=== PATIENT | male | born 1995 | race Caucasian/White ===

== ENCOUNTER 2016-08-12 17:57 | Emergency (ER) | payer BC, MEDICAID ==
--- NOTE | 2016-08-12 18:47 | UC ---
Neck Pain HPI - HPI Summary HPI Summary: 21 yo male arrived here from [place] yesterday Spent night with friends from [facility] Slept on a cough Awoke with mild headache and neck feeling sore No fever No myalgias (other than neck) no cough no nausea/vomiting/diarrhea Chase that there was a cause of meningitis at [facility] a week ago Called his older sister who is in medical school She suggested he get checked He took ibuprofen and has minimal neck pain and his NAIK disappeared - History of Current Complaint Chief Complaint: UCRespiratory Stated Complaint: STIFF NECK/HEADACHE Time Seen by Provider: 08/12/16 18:27 Hx Obtained From: Patient Onset/Duration Of Injury/Symptoms: Hours Timing: Constant Onset/Duration: Lasting Hours Severity: Mild Pain Intensity: 2 Pain Scale Used: 0-10 Numeric Character: Aching Aggravating Factors: Movement Alleviating Factors: OTC Meds Associated Signs & Symptoms: Positive: Headache - mild which felt like his typical NAIK and disappeared with advil - Risk Factors Meningitis Risk Factors: Negative - Allergies/Home Medications Allergies/Adverse Reactions: Allergies Allergy/AdvReac Type Severity Reaction Status Date / Time No Known Allergies Allergy Verified 08/12/16 18:25 Home Medications: Home Medications Atomoxetine(NF) [Strattera(NF)] 25 mg PO DAILY 08/12/16 [History Confirmed 08/12] FLUoxetine CAP* [PROzac CAP*] 40 mg PO DAILY 08/12/16 [History Confirmed ] Levothyroxine TAB* [Synthroid TAB*] 25 mcg PO 0800 08/12/16 [History Confirmed 08/12/16] PMH/Surg Hx/FS Hx/Imm Hx Previously Healthy: Yes Endocrine History Of: Reports: Thyroid Disease - Surgical History Surgical History: None - Family History Known Family History: Positive: Hypertension - Social History Alcohol Use: Weekly Substance Use Type: Marijuana Smoking Status (MU): Never Smoked Tobacco - Immunization History Most Recent Tetanus Shot: unknown Review Of Systems Constitutional: Positive: Negative Skin: Positive: Negative Eyes: Positive: Negative ENT: Positive: Negative Respiratory: Positive: Negative Cardiovascular: Positive: Negative Gastrointestinal: Positive: Negative Genitourinary: Positive: Negative Musculoskeletal: Positive: Negative, Myalgia - neck Neurological: Positive: Headache - gone Psychological: Positive: Negative All Other Systems Reviewed And Are Negative: Yes Physical Exam Triage Information Reviewed: Yes Appearance: Well-Appearing, No Pain Distress, Well-Nourished Vital Signs: Initial Vital Signs Temp 99.4 F 08/12/16 18:20 Pulse 100 08/12/16 18:20 Resp 14 08/12/16 18:20 BP 133/72 08/12/16 18:20 Pulse Ox 96 08/12/16 18:20 Vital Signs Reviewed: Yes Eyes: Positive: Conjunctiva Clear ENT: Positive: Hearing grossly normal, Pharynx normal, TMs normal. Negative: Nasal congestion, Nasal drainage, Tonsillar exudate, Trismus, Muffled/hoarse voice Neck: Positive: Supple, Nontender, No Lymphadenopathy Respiratory: Positive: Lungs clear, Normal breath sounds, No respiratory distress, No accessory muscle use Cardiovascular: Positive: RRR, No Murmur Abdomen Description: Positive: Nontender, No Organomegaly, Soft Musculoskeletal: Positive: ROM Intact, No Edema Neurological Exam: Normal Neurological: Positive: Alert Psychological Exam: Normal Skin Exam: Normal - Additional Comments (-) Kim (-) Emmanuel Neck Pain Course/Dx - Differential Dx/Diagnosis Provider Diagnoses: cervical muscular pain. headache-resolved Discharge - Discharge Plan Condition: Stable Disposition: HOME Patient Education Materials: Neck Pain (ED) Additional Instructions: I suspect your symptoms are due to sleeping in an odd position on a couch last PM you make take advil if necessary recheck for severe headache stiff neck (inability to touch chin to chest) fever address of [facility]: [address] [place] [address]
== END 2016-08-12 18:52 | disposition home or self-care (01) ==
LOC: UCCORT 17:57
DX: M54.2 Cervicalgia (principal); E07.9 Disorder of thyroid, unspecified; F12.90 Cannabis use, unspecified, uncomplicated
CPT/HCPCS: 99201; G0463